=== PATIENT | male | born 1945 ===

== ENCOUNTER 2020-01-19 13:46 | Inpatient (IN) | payer OTHER ==
[~2020-01-19] VITALS: Ht 177.8 cm; Wt 72.2 kg
[~2020-01-19 13:46] MED LIST: LEVSOD75 PO; SERT100 PO; SILD50TA PO; TRAZ50 PO
[2020-01-19 14:34] LABS: BASOPHILS ABSOLUTE AUTO 0.08 K/mm3 (0.00-0.23); BASOPHILS PERCENT AUTO 1 % (0-2); EOSINOPHILS ABSOLUTE AUTO 0.13 K/mm3 (0.00-0.68); EOSINOPHILS PERCENT AUTO 1 % (0-6); Hematocrit 37.5 % (37.0-53.0); Hemoglobin 12.9 g/dL (13.5-17.5); IMMATURE GRAN ABSOLUTE AUTO 0.19 K/mm3 (0.00-0.10); IMMATURE GRAN PERCENT AUTO 2 % (0-1); LYMPHOCYTES ABSOLUTE AUTO 2.87 K/mm3 (0.84-5.20); LYMPHOCYTES PERCENT AUTO 27 % (21-46); MONOCYTES ABSOLUTE AUTO 0.67 K/mm3 (0.16-1.47); MONOCYTES PERCENT AUTO 6 % (4-13); Mean Corpuscular HGB 33.3 pg (26.0-34.0); Mean Corpuscular HGB Conc 34.4 g/dL (31.5-36.5); Mean Corpuscular Volume 97 fL (80-100); Mean Platelet Volume 9.6 fL (9.1-12.4); NEUTROPHILS ABSOLUTE AUTO 6.56 K/mm3 (1.96-9.15); NEUTROPHILS PERCENT AUTO 63 % (41-73); Platelet Count 248 K/mm3 (150-400); RDW Coefficient Variation 12.2 % (11.7-14.2); RDW Standard Deviation 43.7 fL (35.1-46.3); Red Blood Cell Count 3.87 M/mm3 (4.30-5.90)
[2020-01-19 14:45] LABS: Albumin, Blood 3.8 g/dL (3.4-5.0); Bilirubin, Total 0.6 mg/dL (0.1-1.0); Calcium, Blood 9.6 mg/dL (8.5-10.1); Creatinine, Blood 1.4 mg/dL (0.60-1.20); Globulin, Blood 3.8 g/dL (2.2-4.0); Potassium, Blood 3.8 mmol/L (3.5-5.5); Total Protein, Blood 7.6 g/dL (6.4-8.2)
--- NOTE | 2020-01-19 17:40 | NUR ---
PT HERE FROM ER VIA [facility]. PT MOVED TO BED WITH MULT ASSIST. PT TOLERATED WELL. PT HAS DRESSING TO HEAD AND LFA THAT ARE C/D/I. PT SPEECH CLEAR. PT EYES PERLLA. PT SPEECH CLEAR. PPPX4. WIGGLES TOES. PT A/O. NO SORES TO HEELS NOTED. PT ORIENTED TO CALL LIGHT AND PHONE. BED ALARM PLACED.
--- NOTE | 2020-01-19 18:32 | NUR ---
ADMIT PAPERWORK COMPLETE WILL REPORT TO HS RN. PT BEEN RESTING WHEN NOT DISTURBED. BED ALARM IN PLACE. CALL LIGHT IN REACH.
--- NOTE | 2020-01-19 22:05 | NUR ---
CHLORHEXIDINE BATH WITH CHLORHEXIDINE WIPES GIVEN AT 2245 PER ORDERS
--- NOTE | 2020-01-20 04:08 | NUR ---
SHIFT SUMMARY PT IS A/O X4. PT HAS BEEN BEDREST D/T HIP FX. REPOSITIONED PRN. ICE APPLIED TO R LEG SEEMS TO HELP WITH PAIN. PAIN MANAGED WITH IV DILAUDED PER ORDERS; SEE EMAR. PT HAS BEEN NPO SINCE MIDNIGHT FOR SURGERY. PT VOIDING SMALL AMTS. FLUIDS HAVE BEEN RUNNING THROUGHOUT THE NIGHT. ASSISTED WITH ADL'S PRN.
--- NOTE | 2020-01-20 08:49 | NUR ---
PT TRANSFERRED TO [facility] BY [facility] FOR TRANSPORT TO IMAGING.
--- NOTE | 2020-01-20 12:39 | NUR ---
DISCUSSED PT'S STATUS WITH DR EPPS.
--- NOTE | 2020-01-20 15:08 | NUR ---
PT OUT OF ROOM FOR PROCEDURE. DISCUSSED NUMBER ON FRONT OF CHART WHICH SHE WOULD LIKE TO TALK TO DR BEFORE SURGERY TO OTHER RN'S. ALSO PT RECENTLY VOIDED AND MEDICATED FOR PAIN.
--- NOTE | 2020-01-20 15:39 | NUR ---
SHIFT SUMMARY PT BEEN NPO FOR PROCEDURE. PT BEEN REPOSITIONED PRN FOR COMFORT MULT TIMES WELL MEDICATED FOR PAIN PRN. PT BEEN ASSISTED WITH ADL'S PRN. PT BEEN PLEASANT AND COOPERATIVE. PT CURRENTLY OUT OF ROOM FOR PROCEDURE, SEE OTHER NOTE.
--- NOTE | 2020-01-20 18:32 | NUR ---
POST OP S/P R HIP REPAIR. AQUACEL DRESSING CDI. PT ABLE TO WIGGLE TOES. CAP REFILL WNL. PEDAL PULSES PALPABLE. PT REPORTS PAIN TOLERABLE AT THIS TIME. POST OP VS IN PROGRESS AND STABLE. ON 2L O2 VIA NC PT DESATS AFTER NARCOTICS PER PACU. ENCOURAGING DEEP BREATHING. OFFERING CLEAR LIQS. IVF INFUSING PER ORDERS. CALL LIGHT WITHIN REACH.
[2020-01-21 04:09] LABS: BASOPHILS PERCENT AUTO 0 % (0-2); EOSINOPHILS PERCENT AUTO 0 % (0-6); Hematocrit 26.8 % (37.0-53.0); Hemoglobin 8.8 g/dL (13.5-17.5); IMMATURE GRAN ABSOLUTE AUTO 0.05 K/mm3 (0.00-0.10); IMMATURE GRAN PERCENT AUTO 0 % (0-1); LYMPHOCYTES ABSOLUTE AUTO 0.72 K/mm3 (0.84-5.20); LYMPHOCYTES PERCENT AUTO 6 % (21-46); MONOCYTES ABSOLUTE AUTO 1.21 K/mm3 (0.16-1.47); MONOCYTES PERCENT AUTO 11 % (4-13); Mean Corpuscular HGB 32.8 pg (26.0-34.0); Mean Corpuscular HGB Conc 32.8 g/dL (31.5-36.5); Mean Platelet Volume 9.2 fL (9.1-12.4); NEUTROPHILS ABSOLUTE AUTO 9.47 K/mm3 (1.96-9.15); NEUTROPHILS PERCENT AUTO 83 % (41-73); Platelet Count 143 K/mm3 (150-400); RDW Coefficient Variation 12.7 % (11.7-14.2); RDW Standard Deviation 46.5 fL (35.1-46.3); Red Blood Cell Count 2.68 M/mm3 (4.30-5.90); White Blood Cell Count 11.45 K/mm3 (4.00-11.30)
[2020-01-21 04:10] LABS: Mean Corpuscular Volume 100 fL (80-100)
[2020-01-21 04:33] LABS: Anion Gap 5 mmol/L (6-16); Blood Urea Nitrogen 29 mg/dL (8-24); Bun/Creatinine Ratio 30.3 (12.0-20.0); CO2, Blood 28 mmol/L (21-32); Calcium, Blood 7.7 mg/dL (8.5-10.1); Chloride, Blood 106 mmol/L (98-108); Creatinine, Blood 0.96 mg/dL (0.60-1.20); Glomerular Filtration Rate >60 (60-); Glucose, Blood 124 mg/dL (70-99); Phosphorus, Blood 1.7 mg/dL (2.5-4.9); Potassium, Blood 4.3 mmol/L (3.5-5.5); Sodium, Blood 139 mmol/L (136-145)
--- NOTE | 2020-01-21 05:05 | NUR ---
SHIFT SUMMARY: MARIELENA IS POD1 FOR A RIGHT HIP GAMMA NAILING. HE IS A&O X4 WITH SOME MILD CONFUSION, FORGETTING HOW TO USE THE INCENTIVE SPIROMETER. NO ACUTE EVENTS OVERNIGHT. HE IS TOLERATING PO INTAKE WELL. AQUACELL X 2 TO R HIP C/D&I. LOW GRADE FEVER FOR WHICH HE WAS ENCOURAGED TO T,DB&C. IS USE ENCOURAGED ALSO. HE IS USING THE URINAL WITHOUT DIFFICULTY. FLUIDS INFUSING. HE USES THE CALL LIGHT APPROPRIATLEY. HE IS ABLE TO MAKE HIS NEEDS KNOWN. SCDs IN PLACE. WILL REPORT TO DAY SHIFT RN.
--- NOTE | 2020-01-21 07:30 | NUR ---
pt voided had difficulty upper linen changed pt also asked for something to drink pt reports pain 4/10
--- NOTE | 2020-01-21 09:13 | NUR ---
pt up to edge of the bed with physical and ot therapy
--- NOTE | 2020-01-21 10:32 | NUR ---
miguelangel by to see pt pt's called stated pt had eye floaters worried re he be seen by opthalmologist talked with him req i talk to dr song re it when he makes his rounds
--- NOTE | 2020-01-21 12:45 | NUR ---
PT ASSISTED BACK INTO BED BIOX 88% ON RA ENCOURAGED IS/TCDB PT PLACED BACK ON 2 L NC WITH HUMIDIFER PT STATED HIS NOSE WAS DRY ALSO UPDATED PT COND WITH DR EPPS EARLIER RE I TALK WITH DR SEPULVEDA RE HIS EYES BIOX IMPROVED 97%
--- NOTE | 2020-01-21 16:05 | NUR ---
dr priec by to see pt cxray ordered po norco given
--- NOTE | 2020-01-21 18:04 | NUR ---
pt back from cxray faustina claudio still wanting to eat his dinner
--- NOTE | 2020-01-22 04:31 | NUR ---
SHIFT SUMMARY POD 2 R HIP GAMMA NAILING AA0X4, VSS. PT REPORTS FEELING "BEAT UP", MEDICATED FOR PAIN PER EMAR, STATES RELIEF AT LEVEL 4/10. NO CHANGES NOTED IN BRUISING. R HIP SWOLLEN. PT REPORTS "FLOATERS" IN EYE STILL BUT DENIES PAIN OR ANY VISUAL CHANGES. PT TITRATED TO ROOM AIR SATS AT 95%, WILL CONTINUE TO MONITOR FOR ANY CHANGES IN SATURATION LEVELS. AQUACEL CDI. PT TOLERATING PO. VOIDING T/O SHIFT.
[2020-01-22 06:36] LABS: BASOPHILS ABSOLUTE AUTO 0.03 K/mm3 (0.00-0.23); BASOPHILS PERCENT AUTO 0 % (0-2); EOSINOPHILS ABSOLUTE AUTO 0.07 K/mm3 (0.00-0.68); EOSINOPHILS PERCENT AUTO 1 % (0-6); Hematocrit 26.8 % (37.0-53.0); IMMATURE GRAN ABSOLUTE AUTO 0.05 K/mm3 (0.00-0.10); IMMATURE GRAN PERCENT AUTO 0 % (0-1); LYMPHOCYTES ABSOLUTE AUTO 1.51 K/mm3 (0.84-5.20); LYMPHOCYTES PERCENT AUTO 13 % (21-46); MONOCYTES ABSOLUTE AUTO 1.23 K/mm3 (0.16-1.47); MONOCYTES PERCENT AUTO 11 % (4-13); Mean Corpuscular HGB 33.2 pg (26.0-34.0); Mean Corpuscular HGB Conc 33.6 g/dL (31.5-36.5); Mean Corpuscular Volume 99 fL (80-100); Mean Platelet Volume 9.3 fL (9.1-12.4); NEUTROPHILS ABSOLUTE AUTO 8.63 K/mm3 (1.96-9.15); NEUTROPHILS PERCENT AUTO 75 % (41-73); Platelet Count 145 K/mm3 (150-400); RDW Coefficient Variation 12.5 % (11.7-14.2); RDW Standard Deviation 45.2 fL (35.1-46.3); Red Blood Cell Count 2.71 M/mm3 (4.30-5.90); White Blood Cell Count 11.52 K/mm3 (4.00-11.30)
[2020-01-22 06:59] LABS: Alanine Aminotransfer (ALT/SGP 45 U/L (12-78); Albumin/Globulin Ratio 0.8 (0.8-1.8); Alk Phos 48 U/L (50-136); Anion Gap 4 mmol/L (6-16); Aspartate Aminotrans (AST/SGOT 113 U/L (12-37); Bilirubin, Total 0.8 mg/dL (0.1-1.0); Blood Urea Nitrogen 20 mg/dL (8-24); CO2, Blood 30 mmol/L (21-32); Calcium, Blood 7.9 mg/dL (8.5-10.1); Chloride, Blood 105 mmol/L (98-108); Creatinine, Blood 0.84 mg/dL (0.60-1.20); Globulin, Blood 3.7 g/dL (2.2-4.0); Glomerular Filtration Rate >60 (60-); Glucose, Blood 89 mg/dL (70-99); Potassium, Blood 4.1 mmol/L (3.5-5.5); Sodium, Blood 139 mmol/L (136-145); Total Protein, Blood 6.7 g/dL (6.4-8.2)
--- NOTE | 2020-01-22 09:34 | NUR ---
THERAPY IN WITH PT
--- NOTE | 2020-01-22 10:04 | NUR ---
declining ice to hip PT RESTING IN BED. DECLINED OFFER FOR ICE TO HIP. CALL LIGHT IN REACH.
--- NOTE | 2020-01-22 14:21 | NUR ---
THERAPY IN TO SEE PT.
--- NOTE | 2020-01-22 17:07 | NUR ---
SUMMARY NO ACUTE CHANGES T/O SHIFT. PT AMBULATED TO RESTROOM THIS AM W/FWW, GAIT BELT, AND 2 PERSON ASSIST. VERY PAINFUL. PT SAT UP IN CHAIR AND WORKED W/THERAPY. NOW RESTING IN BED. REPORTED NORCO MADE HIM FEEL GROGGY BUT DID NOT "DO MUCH" FOR PAIN RELIEF. AT 1211, ADMINISTERED ROXICODONE PER ORDERS FOR PAIN. PT REPORTS PAIN RELIEF "A LITTLE BETTER" W/ROXICODONE. CURRENTLY RATING PAIN AT 4/10 AND DENIES NEED FOR PAIN MEDICATION AT THIS TIME. CALL LIGHT IN REACH.
--- NOTE | 2020-01-23 06:13 | NUR ---
SHIFT SUMMARY LYING IN LOW FOWLERS WITH EYES CLOSED. REPOSITIONED IN BED WITH 1 PERSON ASSIST. GOOD URINE OUTPUT NOTED IN URINAL. RIGHT HAND SL PIV INTACT. LEFT SIDE OF HEAD GUAZE AND TAPE DRESSING IS C/D/I. RIGHT HIP DRESSING INTACT WITH SMALL AMOUNT OF SHADOWING NOTED. PAIN MANAGED PER EMAR. DENIES FURTHER NEEDS OR WANTS AT THIS TIME. SAFETY MEASURES IN PLACE. WILL GIVE HAND OFF TO ONCOMING SHIFT USING SBAR DURING BEDSIDE REPORT. WILL CONTINUE TO MONITOR.
--- NOTE | 2020-01-23 17:23 | NUR ---
SUMMARY NO ACUTE CHANGES THIS SHIFT. PT WORKED W/THERAPY TWICE DURING SHIFT, AMBULATING SHORT DISTANCES AND SAT UP IN CHAIR. PT STARTED ON SCHEDULED TORADOL PER ORDERS AND REPORTED FEELS "MUCH BETTER." TOLERATING SMALL AMOUNTS OF DIET. VOIDING. CALL LIGHT IN REACH. PT'S CALLED AND REPORTED WILL NEED TRANSPORT ASSISTANCE THEY HAVE 8 STAIRS TO GO DOWN TO GET IN HOUSE.
--- NOTE | 2020-01-24 05:51 | NUR ---
SHIFT SUMMARY POD 4 R HIP NAILING. AA0X4, VSS. PT REPOSITIONING SELF IN BED. DRESSINGS CHANGED ON R HIP. VOIDING IN URINAL. MEDICATED PER EMAR WITH SCHEDULED TORODOL, PT STATED RELIEF AND HAS DECLINED PAIN MEDICATIONS SINCE THEN. TOLERATED PO WELL. PT HAS BEEN RESTING IN BED, PAIN ON INSPIRATION LEFT SIDE. ARM AND UPPERCHEST/ BACK BRUISING APPEARS UNCHANGED. PT ABLE TO MOVE ARM.
[2020-01-24] MEDS ORDERED: Norco 5-325 Ta1 EACH PO (09:38)
[2020-01-24] MEDS ORDERED: NAPR500 PO (09:40)
[2020-01-24] MEDS ORDERED: ASPI325 PO (09:53)
[2020-01-24] MEDS ORDERED: PANT40 PO (09:53)
--- NOTE | 2020-01-24 11:19 | NUR ---
SHIFT SUMMARY PT LEFT VIA WC W/TRANSPORT TO GO HOME WITH ALL PERSONAL POSSESSIONS INCLUDING DC PACKET, EXTRA AQUACEL DRESSINGS, 1 NARCOTIC SCRIPT; OTHER SCRIPTS FAXED TO PHARMACY. DC INSTRUCTIONS PROVIDED. PT REP UNDERSTANDING THOSE INSTRUCTIONS INCLUDING FU WITH PCP AND SURGEON, DRESSING CHANGES, OK TO SHOWER, NO TUB BATHS. IV DC'D.
== END 2020-01-24 11:09 | disposition home health service (06) | DRG 481 ==
LOC: ER 13:46 → SURS 16:41 → ER 01-20 15:30 → SURS 01-24 11:09
PROVIDERS: Emergency Medicine; Internal Medicine; Orthopaedic Surgery; ADMIT Internal Medicine
PROC: 0QS604Z Reposition Right Upper Femur with Internal Fixation Device, Open Approach (ICD-10-PCS; principal; 2020-01-20 16:00)
DX: S72.141A Displaced intertrochanteric fracture of right femur, initial encounter for closed fracture (principal); S32.048A Other fracture of fourth lumbar vertebra, initial encounter for closed fracture; J98.11 Atelectasis; N17.9 Acute kidney failure, unspecified; E03.9 Hypothyroidism, unspecified; F32.9 Major depressive disorder, single episode, unspecified; M25.522 Pain in left elbow; R09.02 Hypoxemia; D64.9 Anemia, unspecified; S09.90XA Unspecified injury of head, initial encounter; W13.8XXA Fall from, out of or through other building or structure, initial encounter; Y92.009 Unspecified place in unspecified non-institutional (private) residence as the place of occurrence of the external cause; R40.2410 Glasgow coma scale score 13-15, unspecified time; Z87.891 Personal history of nicotine dependence
CPT/HCPCS: 12004; 36415; 70450; 71045; 71046; 72125; 72170; 72192; 73030; 73080; 73502; 74160; 80053; 80069; 85025; 96361-59; 96374-59; 96375-59; 97110; 97112; 97116; 97162; 97166; 97530; 97535; 99285-25; A9270; A9270-GY; C1713; C1769; J0690; J1100; J1170; J1885; J2060; J2405; J2704; J3010; J7030; J7120; Q9967

== ENCOUNTER → 2021-04-03 | Outpatient (CLI) | payer OTHER ==
[~2021-04-03] MED LIST changes: +ASPI325 PO; +NAPR500 PO; +Norco 5-325 Ta1 EACH PO; +PANT40 PO
[2021-04-03 09:39] LABS: BASOPHILS ABSOLUTE AUTO 0.05 K/mm3 (0.00-0.23); BASOPHILS PERCENT AUTO 1 % (0-2); EOSINOPHILS ABSOLUTE AUTO 0.16 K/mm3 (0.00-0.68); EOSINOPHILS PERCENT AUTO 3 % (0-6); Hematocrit 37.3 % (37.0-53.0); Hemoglobin 12.4 g/dL (13.5-17.5); IMMATURE GRAN ABSOLUTE AUTO 0.02 K/mm3 (0.00-0.10); IMMATURE GRAN PERCENT AUTO 0 % (0-1); LYMPHOCYTES ABSOLUTE AUTO 1.89 K/mm3 (0.84-5.20); LYMPHOCYTES PERCENT AUTO 30 % (21-46); MONOCYTES ABSOLUTE AUTO 0.56 K/mm3 (0.16-1.47); MONOCYTES PERCENT AUTO 9 % (4-13); Mean Corpuscular HGB 32.7 pg (26.0-34.0); Mean Corpuscular HGB Conc 33.2 g/dL (31.5-36.5); Mean Corpuscular Volume 98 fL (80-100); Mean Platelet Volume 9.5 fL (9.1-12.4); NEUTROPHILS ABSOLUTE AUTO 3.65 K/mm3 (1.96-9.15); NEUTROPHILS PERCENT AUTO 58 % (41-73); Platelet Count 183 K/mm3 (150-400); RDW Coefficient Variation 12.3 % (11.7-14.2); RDW Standard Deviation 44.9 fL (35.1-46.3); Red Blood Cell Count 3.79 M/mm3 (4.30-5.90); White Blood Cell Count 6.33 K/mm3 (4.00-11.30)
[2021-04-03 09:49] LABS: Anion Gap 6 mmol/L (6-16); Blood Urea Nitrogen 25 mg/dL (8-24); Bun/Creatinine Ratio 21.9 (12.0-20.0); CHOL/HDL RATIO 4.2; CO2, Blood 30 mmol/L (21-32); Calcium, Blood 8.8 mg/dL (8.5-10.1); Chloride, Blood 104 mmol/L (98-108); Cholesterol 203 mg/dL (50-200); Creatinine, Blood 1.14 mg/dL (0.60-1.20); Glomerular Filtration Rate >60 (60-); Glucose, Blood 89 mg/dL (70-99); HDL Cholesterol 48 mg/dL (>39); LDL/HDL RATIO 2.7; Low Density Lipoprotein Chol 128 mg/dL (0-110); Sodium, Blood 140 mmol/L (136-145); Triglycerides 133 mg/dL (30-160); Very Low Density Lipoprot Chol 26 mg/dL (6-32)
== END | disposition home or self-care (01) ==
LOC: LAB 08:04 → LAB SHORT 08:04
PROVIDERS: Internal Medicine
DX: Z11.59 Encounter for screening for other viral diseases (principal); Z13.220 Encounter for screening for lipoid disorders; E03.9 Hypothyroidism, unspecified; I10 Essential (primary) hypertension
CPT/HCPCS: 36415; 80048; 80061; 84443; 85025; 86803

== ENCOUNTER 2022-11-08 11:30 | Day surgery (SDC) | payer OTHER ==
[~2022-11-08] VITALS: Ht 177.8 cm; Wt 62.6 kg
[2022-11-08] MEDS ORDERED: DOCU100 (12:11)
[2022-11-08] MEDS ORDERED: FAMO10 (12:11)
== END 2022-11-08 14:18 | disposition home or self-care (01) ==
LOC: ORSCSDS 11:30
PROVIDERS: Student in an Organized Health Care Education/Training Program
PROC: 0DBK8ZX Excision of Ascending Colon, Via Natural or Artificial Opening Endoscopic, Diagnostic (ICD-10-PCS; principal; 2022-11-08 13:00)
PROC: 0DBL8ZX Excision of Transverse Colon, Via Natural or Artificial Opening Endoscopic, Diagnostic (ICD-10-PCS; principal; 2022-11-08 13:00)
PROC: 0DBH8ZX Excision of Cecum, Via Natural or Artificial Opening Endoscopic, Diagnostic (ICD-10-PCS; principal; 2022-11-08 13:00)
DX: R19.5 Other fecal abnormalities (principal); R63.4 Abnormal weight loss; Z86.010 Personal history of colon polyps; D12.3 Benign neoplasm of transverse colon; D12.2 Benign neoplasm of ascending colon; Q43.8 Other specified congenital malformations of intestine; K64.8 Other hemorrhoids; I10 Essential (primary) hypertension; F32.A Depression, unspecified; E03.9 Hypothyroidism, unspecified; Z79.899 Other long term (current) drug therapy
CPT/HCPCS: 88305; J0330; J0461; J2405; J2704; J7120; Q9968

== ENCOUNTER 2023-10-08 10:53 | Day surgery (SDC) | payer OTHER ==
[~2023-10-08] VITALS: Ht 177.8 cm; Wt 63.1 kg
[~2023-10-08 10:53] MED LIST changes: +DOCU100; +FAMO10
[2023-10-08] MEDS ORDERED: ALEN70 (11:25)
[2023-10-08] MEDS ORDERED: TAMS.4ER (11:25)
[2023-10-08 13:35] VITALS: BP 136/84
== END 2023-10-08 13:45 | disposition home or self-care (01) ==
LOC: ORSCSDS 10:53
PROVIDERS: Specialist
PROC: 0DJD8ZZ Inspection of Lower Intestinal Tract, Via Natural or Artificial Opening Endoscopic (ICD-10-PCS; principal; 2023-10-08 12:15)
DX: Z86.010 Personal history of colon polyps (principal); K64.8 Other hemorrhoids; F32.9 Major depressive disorder, single episode, unspecified; E07.9 Disorder of thyroid, unspecified; Z79.899 Other long term (current) drug therapy
CPT/HCPCS: J2405; J2704; J7120

== ENCOUNTER → 2024-10-25 | Outpatient (CLI) | payer OTHER ==
[~2024-10-25] MED LIST changes: +ALEN70; +TAMS.4ER
== END ==
LOC: LAB SHORT 08:19 → LAB 08:19
DX: L82.1 Other seborrheic keratosis (principal)
CPT/HCPCS: 88305

== ENCOUNTER → 2025-01-05 | Outpatient (CLI) | payer OTHER ==
[2025-01-05 10:48] LABS: Microalbumin, Urine Quant. 16.6 mg/L (0.000-20.000); Protein, Urine Quantitative 12.4 mg/dL (0.0-11.9)
== END ==
LOC: LAB 08:48 → LAB SHORT 08:48 → EDSTATUS 01-03 13:15 → LAB FUT 01-03 13:15
PROVIDERS: Internal Medicine Nephrology
DX: N18.30 Chronic kidney disease, stage 3 unspecified (principal); D63.1 Anemia in chronic kidney disease; N25.81 Secondary hyperparathyroidism of renal origin; E55.9 Vitamin D deficiency, unspecified; E78.00 Pure hypercholesterolemia, unspecified; R76.9 Abnormal immunological finding in serum, unspecified; R94.5 Abnormal results of liver function studies; G60.9 Hereditary and idiopathic neuropathy, unspecified; D51.8 Other vitamin B12 deficiency anemias; D50.9 Iron deficiency anemia, unspecified
CPT/HCPCS: 81050; 82043; 82570; 84156

== ENCOUNTER → 2025-09-06 | Outpatient (CLI) | payer OTHER ==
[2025-09-06 17:56] LABS: Bilirubin, Urine Neg (Neg); Color, Urine Yellow (P-Yellow); Glucose Qualitative, Urine Neg (Neg); Ketones, Urine 1+ (Neg); Leukocyte Esterase, Urine 1+ (Neg); Protein, Urine 2+ (Neg); Specific Gravity, Urine 1.020 (1.003-1.022); Urobilinogen, Urine 2+ (Normal)
== END ==
LOC: LAB SHORT 16:13 → LAB 16:13
PROVIDERS: Urology
DX: N50.89 Other specified disorders of the male genital organs (principal); N53.19 Other ejaculatory dysfunction
CPT/HCPCS: 81001; 87086